=== PATIENT | female | born 1975 | race Caucasian/White ===

== ENCOUNTER → 2016-11-11 | Outpatient (CLI) | payer OTHER ==
[~2016-11-11] MED LIST: MULT-506 PO
[2016-11-11 18:14] LABS: LYME DISEASE AB IGG NEG (NEG); LYME DISEASE AB IGM NEG (NEG)
== END | disposition home or self-care (01) ==
LOC: C.LAB1850 14:52
PROVIDERS: ATTEND Psychiatry & Neurology Neurology
DX: R51 Headache (principal); W57.XXXA Bitten or stung by nonvenomous insect and other nonvenomous arthropods, initial encounter

== ENCOUNTER → 2017-02-05 | Outpatient (CLI) | payer OTHER | END | disposition home or self-care (01) | LOC: C.PAPS 14:46 | PROVIDERS: ATTEND Obstetrics & Gynecology | DX: Z12.4 Encounter for screening for malignant neoplasm of cervix (principal) ==

== ENCOUNTER → 2017-02-05 | Outpatient (CLI) | payer OTHER ==
[2017-02-09 23:54] LABS: CHLAMYDIA TRACH RNA*** NOT DETECTED (NOT DETECTED); GC (NEIS GONORRHOEAE)RNA** NOT DETECTED (NOT DETECTED)
== END ==
LOC: C.LABSPEC 13:22
PROVIDERS: ATTEND Obstetrics & Gynecology
DX: Z11.3 Encounter for screening for infections with a predominantly sexual mode of transmission (principal)

== ENCOUNTER → 2017-09-07 | Outpatient (CLI) | payer OTHER ==
--- NOTE | 2017-09-08 07:42 | MAMMOGRAPHY REPORT ---
BILATERAL DIGITAL SCREENING MAMMOGRAM TOMOSYNTHESIS WITH CAD: 09/07/2017 CLINICAL HISTORY: Routine screening. Patient has no complaints. TECHNIQUE: Breast tomosynthesis in addition to standard 2D mammography was performed. Current study was also evaluated with a Computer Aided Detection (CAD) system. COMPARISON: Comparison is made to exams dated: 07/22/2011 aspiration, 07/22/2011 ultrasound biopsy, ultrasound, and 07/18/2011 mammogram - [facility]. BREAST COMPOSITION: The tissue of both breasts is extremely dense, which lowers the sensitivity of m ammography. FINDINGS: There is a possible new cluster of microcalcifications in the 6:00 anterior right breast, for which additional spot magnification views are recommended. There is a stable metallic biopsy marker clip in the 12:00 posterior left breast. No other suspicious mass, architectural distortion or cluster of microcalcifications is seen bilaterally. IMPRESSION: ACR BI-RADS CATEGORY 0: INCOMPLETE EVALUATION: NEED ADDITIONAL IMAGING EVALUATION The possible new cluster of microcalcifications in the 6:00 anterior right breast needs additional ev aluation. The patient will be called to schedule an appointment. Approximately 10% of breast cancers are not detected with mammography. A negative mammographic report should not delay biopsy if a clinically suggestive mass is present. Tammy Bueno M.D. ay/:09/07/2017 16:11:03 Community Outreach Coordinator: Travis Huitron, M, [facility] letter sent: Addl Imaging 0 BI-RADS Code: ACR BI-RADS Category 0: Incomplete Evaluation: Need Additional Imaging Evaluation
== END | disposition home or self-care (01) ==
LOC: C.MAMM 14:09
PROVIDERS: ATTEND Obstetrics & Gynecology
DX: Z12.31 Encounter for screening mammogram for malignant neoplasm of breast (principal); R92.0 Mammographic microcalcification found on diagnostic imaging of breast

== ENCOUNTER → 2017-09-14 | Outpatient (CLI) | payer OTHER ==
--- NOTE | 2017-09-14 14:59 | MAMMOGRAPHY REPORT ---
UNILATERAL RIGHT DIGITAL DIAGNOSTIC MAMMOGRAM: 09/14/2017 CLINICAL HISTORY: 42-year-old woman called back from screening mammography for a new cluster of micro calcifications in the 6:00 right breast. Patient has a history of prior benign ultrasound-guided bio psy in the 12:00 posterior left breast. TECHNIQUE: Spot magnification right CC and ML views were obtained. COMPARISON: Comparison is made to exams dated: 09/07/2017 mammogram, 07/22/2011 aspiration, 07/22/2011 ultrasound biopsy, 07/18/2011 ultrasound, and 07/18/2011 mammogram - [facility]. BREAST COMPOSITION: The tissue of the right breast is extremely dense, which lowers the sensitivity of mammography. FINDINGS: There is a 4.6 mm grouping of round and punctate microcalcifications in the 6:00 anterior right breast. The largest round calcification appears to layer on the spot magnification MLO view leavitt ggesting benign milk of calcium. There is no associated architectural distortion or obvious mass. T hese calcifications are new comparing to the prior available mammogram from 07/18/2011, and remain in determinate given that not all of the calcifications demonstrate layering to confirm benignity. A [facility] breast stereotactic guided biopsy is recommended for definitive characterization. IMPRESSION: ACR BI-RADS CATEGORY 4: SUSPICIOUS 1. Right breast stereotactic guided biopsy is recommended for a small, 4.6 mm grouping of round and punctate microcalcifications in the 6:00 anterior breast. These results and recommendations were discussed with the patient at the time of the exam. She tenta tively scheduled the biopsy prior to leaving our department. Approximately 10% of breast cancers are not detected with mammography. A negative mammographic report should not delay biopsy if a clinically suggestive mass is present. Tammy Bueno M.D. ay/:09/14/2017 14:08:34 Laundry Washer: Nina RILEY(Travis)(Erik), [facility] letter sent: Abnormal 4/5 BI-RADS Code: ACR BI-RADS Category 4: Suspicious
== END | disposition home or self-care (01) ==
LOC: C.MAMM 13:21
PROVIDERS: ATTEND Obstetrics & Gynecology
DX: R92.0 Mammographic microcalcification found on diagnostic imaging of breast (principal)

== ENCOUNTER → 2017-09-28 | Outpatient (CLI) | payer OTHER ==
--- NOTE | 2017-09-28 10:51 | Discharge Instructions ---
Discharge Instructions Procedure Procedure Date: Sep 28, 2017. Reason for visit: Right Calcifications. Discharge Discharge Date: Sep 28, 2017. Discharge Diagnosis: post right breast stereotactic guided biopsy of clustered calcifications in the anterior breast Instructions Activity Recommendations: Additional Limitations (see below) Return to School/Work: no limitations Recommended Home Diet: No Limitations Provider Instructions: ACTIVITY RECOMMENDATIONS: * No lifting, pushing, pulling or exercising the affected side for three days. RETURN TO SCHOOL/WORK: * You may return to work/school after the procedure, but do not perform any strenuous activities for 24 to 48 hours. MEDICATIONS: * Tylenol (two 325 mg) every four to six hours if needed for mild pain (if not allergic to Tylenol). DIET: * Resume previous diet. SPECIAL CARE INSTRUCTIONS: * Keep biopsy site dry for 24 hours. May shower after 24 hours, but do not soak (bathe) incision. * May remove Tegaderm (plastic patch) tomorrow AFTER showering. * Leave the steri-strips on for one week. Allow the steri-strips to fall off by themselves. If not off after one week, you may remove them. You may place a Bandaid crosswise over the strips, if desired. * Apply ice 10 minutes on and 10 minutes off as needed. * Wear a bra at bedtime to sleep more comfortably for 2-3 days. * Your referring physician should have the results after approximately 5 to 7 business days. * Call for unusual bleeding, fever, drainage, etc or if you have any questions call [phone] during normal business hours or after hours call Dr Bueno, . FOLLOW UP VISIT: Follow-up with Referring Physician as scheduled. Allergies Coded Allergies: No Known Allergies (Unverified , 04/21/14) Matti Jeffery Recommendations: Call your doctor if: * Temperature above 101 degrees * Pain not relieved by pain medicine ordered * There is increased drainage or redness from any incision * You have any unanswered questions or concerns. Your Doctors Instructions noted above were prepared by provider Tammy Bueno. Patient Signature Section: Patient Instructions Signature Page Shannon Melgar Patient (or Guardian) Signature/Date: I have read and understand the instructions given to me by my caregivers. Caregiver/RN/Doctor Signature/Date: The above-named patient and/or guardian has received patient instructions on this date. + Original Patient Signature Page (only) stays with chart. Please make copy for patient.
--- NOTE | 2017-09-28 15:18 | MAMMOGRAPHY REPORT ---
UNILATERAL RIGHT DIGITAL DIAGNOSTIC MAMMOGRAM: 09/28/2017 CLINICAL HISTORY: Status post right breast stereotactic biopsy of clustered punctate and round microc alcifications in the 6:00 anterior breast. Please refer to the report from right breast stereotactic guided biopsy performed at the same time fo r full detail. IMPRESSION: POST PROCEDURE IMAGING FOR MARKER PLACEMENT Please refer to the report from right breast stereotactic guided biopsy performed at the same time fo r full detail. Approximately 10% of breast cancers are not detected with mammography. A negative mammographic report should not delay biopsy if a clinically suggestive mass is present. Tammy Bueno M.D. ay/:09/28/2017 10:50:24 Cook Syrup Maker: Nina Alston RT(R)(M), [facility] BI-RADS Code: Post Procedure Imaging For Marker Placement
--- NOTE | 2017-09-28 15:18 | MAMMOGRAPHY REPORT ---
STEREOTACTIC GUIDED BIOPSY RIGHT BREAST: 09/28/2017 CLINICAL HISTORY: 42-year-old woman presents for biopsy of an indeterminate 4.6 mm grouping of round and punctate microcalcifications in the 6:00 right breast. She has a history of a benign ultrasound- guided core biopsy of the left breast in 2010. COMPARISON: Comparison is made to exams dated: 09/14/2017 mammogram, 09/07/2017 mammogram, 07/22/2011 aspiration, 07/22/2011 ultrasound biopsy, 07/18/2011 ultrasound, and 07/18/2011 mammogram - [facility]. PATIENT CONSENT: After explaining the risks, benefits and alternatives of the procedure to the patien t, informed consent was obtained both verbally and in writing. Specific risks include: Bleeding, inf ection, puncture of adjacent structure, pain, nontarget biopsy, sampling error, metal allergy and med ication reaction. PROCEDURE DESCRIPTION: A time-out was performed and the right breast was confirmed as the site of bio psy. The patient was placed prone on the stereotactic biopsy table and the breast was placed in CC fr om below compression. A automobile service advisor image was obtained that demonstrated the clustered microcalcifications in question. They are amenable to sterotactic biopsy. Then +15 and -15 stereo pair images were obt ained. The calcifications were targeted utilizing the coordinates obtained by the computer. The skin was prepped with Betadine. 1% Lidocaine with and without epinipherine was administered as local anes thesia. A small skin incision was made. Through the incision, the needle was inserted to the depth d etermined by the computer. 10 samples were obtained using a eduPadiva 9-gauge vacuum-assisted biopsy device. The specimen radiograph demonstrated at least one largest microcalcification but 3 ad ditional core biopsy samples were obtained. Then a dumbbell shaped metallic biopsy marker was placed at the site of the biopsy. There was no immediate complication. Hemostasis was achieved after sever al minutes of manual compression. The samples were sent to pathology in 1 appropriately labeled cont ainer. Postprocedure CC and ML views of the right breast were obtained. There is a new dumbbell-shaped bio psy marker clip in the 6:00 anterior right breast, denoting the site of recent stereotactic biopsy. An air pocket is seen at the biopsy cavity, no postbiopsy hematoma. On the postprocedure ML view the biopsy marker clip projects over skin and therefore a hemostat was utilized to probe the incision an d attempted to push the biopsy marker further into the pocket of the biopsy cavity so that it will no t be felt by the patient. The incision was re-dressed with Steri-Strips and an OpSite patch and the patient left the department in satisfactory condition. IMPRESSION: STEREOTACTIC GUIDED BIOPSY Status post right breast stereotactic guided biopsy of a small grouping of round and punctate microca lcifications in the 6:00 anterior right breast, with biopsy marker clip placed at the site. The patient will receive notification of the biopsy results from her referring physician. Tammy Bueno M.D. ay/:09/28/2017 11:36:18 General Scrap Worker: Nina VIDALES)(Erik), [facility]
== END | disposition home or self-care (01) ==
LOC: C.MAMM 09:43
PROVIDERS: ATTEND Obstetrics & Gynecology
DX: R92.0 Mammographic microcalcification found on diagnostic imaging of breast (principal)

== ENCOUNTER → 2018-05-27 | Outpatient (CLI) | payer OTHER | END | disposition home or self-care (01) | LOC: C.PAPS 11:48 | PROVIDERS: ATTEND Obstetrics & Gynecology | DX: Z12.4 Encounter for screening for malignant neoplasm of cervix (principal) ==